=== PATIENT | female | born 1985 | race Caucasian/White ===

== ENCOUNTER 2018-02-15 19:58 | Emergency (ER) | payer OTHER, SELFPAY ==
[2018-02-15 19:59] VITALS: BP 136/90; PULSE 87; RESP 18; TEMP 36.8; O2SAT 100; BMI 26.2
--- NOTE | 2018-02-15 20:19 | RAD_ITS ---
STUDY: X-RAY - RIGHT SHOULDER REASON FOR EXAM: Female, 32 years old. Fell from horse TECHNIQUE: 4 view(s) of the shoulder. COMPARISON: None. FINDINGS: Normal glenohumeral articulation. Increased AC separation with slight elevation of the distal clavicle. Acromioclavicular joint measures 6 to 7 mm. Normal acromion. Normal humeral head and visualized proximal humerus. The soft tissue structures are unremarkable. Normal visualized pulmonary apex. RAD/Shoulder min 2 Views IMPRESSION: AC separation/strain Electronically Signed: Jim Gonzalez MD at 21:08 EDT , Service support ,
--- NOTE | 2018-02-15 20:51 | ED.VISSUMM ---
- ER Visit Summary Date of Service: 02/15/18 Chief Complaint: Fall, shoulder injury History of Present Illness: The patient is a 32 F with recent diagnosis of fibromuscular dysplasia presents after mechanical fall. Patient was riding a horse. She fell from the horse. She did strike her right head but did not lose consciousness. She also struck her right shoulder. She has not had weakness, dizziness, headache, or vision change. She has had mostly just pain in the shoulder especially when she moves it. She did take ibuprofen at home with little relief. She denies any other injury. The patient recently had evaluation with CTA of her head and neck given this new diagnosis of fibromuscular dysplasia. She has had no change in balance. She has no trouble speaking or swallowing. Physical Examination: Vital signs reviewed General: Well-nourished, well-developed Head: Normocephalic, abrasion over right eye, ecchymosis of the right face, no tenderness to palpation Eyes: Pupils equal and reactive, extraocular muscles intact Neck, supple, no lymphadenopathy Heart: Regular rate and rhythm Respiratory: No distress, clear bilaterally Abdomen: Soft, nontender, nondistended, no peritoneal signs Back: Nontender Extremities: Decreased range of motion right shoulder secondary to pain, normal pulses, sensation preserved s Skin: Normal color no rash Neuro: Alert and oriented, no focal or lateralizing deficits Test Results: [] Emergency Department Course and Treatment: The patient had facial injury, but no evidence of step-off. There is no hemotympanum. She had no tenderness to palpation. I do not feel head CT was necessary. She has no evidence of dissection and has a normal neurologic examination. I did obtain plain films of the shoulder. She has an AC joint separation but no evidence of dislocation. Patient was given a short course of analgesics and a sling. She will be given outpatient orthopedic follow-up. She will be discharged home. Treatment Plan: [] Disposition: Discharge Impression: 1. Fall 2. Facial injury 3. Right AC joint separation This note was generated with [employer] dictation software. It may contain incorrect words, spelling, and punctuation that were not noted in review of the chart prior to signing ED Disposition - Plan for ED Patient: Disposition: Home or Assisted Living Chief Complaint: Fall Instructions: ED Sprain AC Joint Prescriptions: Hydrocodone Bitart/Apap 5-325 [[place] 5MG-325MG] 1 tab PO Q4H PRN PRN 2 Days #10 tab PRN Reason: Pain Referrals: Stanley Panchal DO [STAFF PHYSICIAN] -
[2018-02-15] MEDS: HYDROcodone Bitartrate/Apap 5/325 Tablet PO (21:19)
[2018-02-15 21:24] VITALS: BP 132/74; PULSE 83; RESP 17; O2SAT 99
== END 2018-02-15 21:25 | disposition home or self-care (01) ==
PROVIDERS: Emergency Provider Emergency Medicine; Family Provider Student in an Organized Health Care Education/Training Program; PCP Student in an Organized Health Care Education/Training Program
DX: S43.101A Unspecified dislocation of right acromioclavicular joint, initial encounter (principal); S00.211A Abrasion of right eyelid and periocular area, initial encounter; S00.83XA Contusion of other part of head, initial encounter; S06.0X0A Concussion without loss of consciousness, initial encounter; R40.2410 Glasgow coma scale score 13-15, unspecified time; V80.010A Animal-rider injured by fall from or being thrown from horse in noncollision accident, initial encounter; Y93.52 Activity, horseback riding; Y92.9 Unspecified place or not applicable; Z79.899 Other long term (current) drug therapy
CPT/HCPCS: 73030; 99283

== ENCOUNTER 2018-03-25 14:13 | Day surgery (SDC) | payer OTHER, SELFPAY ==
[2018-03-25 14:35] LABS: Internal QC Validated? YES +Cl - CLEAR BKGD
[2018-03-25 14:36] VITALS: BP 132/77; PULSE 90; RESP 16; TEMP 36.8; O2SAT 100; BMI 26.5
[2018-03-25 14:36] LABS: Pregnancy, Urine Negative Negative
[2018-03-25] MEDS: Acetaminophen 500 MG Tablet 1000 MG PO (14:47)
[2018-03-25] MEDS: Gabapentin 600 MG Tablet PO (14:47)
[2018-03-25] MEDS: Ondansetron 8 MG Tablet 16 MG PO (14:47)
[2018-03-25] MEDS: Celecoxib 200 MG Capsule PO (14:48)
[2018-03-25 15:03] LABS: Thyroid Stim Hormone (TSH) 0.35 uIU/mL (0.358-3.74)
--- NOTE | 2018-03-25 15:45 | FALS_PTH ---
PATIENT: ADALBERTO ALMEIDA LOC: [facility] [place] U#:[id number] AGE/SX: 32/F ROOM: RE03/25/[address]: Dr. Rafaela Koch MD : [id number] BED: DIS: 03/25/2018 SPEC #: [id number] RECD: 03/26/18 08:39 STATUS: KAY NAHEED #: [id number] DANNA: 03/25/18 15:[address]: Rafaela Koch DEPT: SURGICAL PATHOLOGY RECD BY: Live Walters ENTERED: 03/26/18 09:10 SP TYPE: FALL TUBES OTHR DR: Dr. Hermilo Lauren, Tissues: A - Fallopian tube B - Endometrium, NOS Procedures: Surgery Specimen Level II Surgery Specimen Level IV HEADER OPERATION: Hysteroscopy, dilation and curettage PRE-OP DIAGNOSIS: Abnormal uterine bleeding, endometrial polyp TISSUE SUBMITTED: A ? Bilateral fallopian tubes, B ? Endometrial curettings MICROSCOPIC DIAGNOSIS A. Right and left fallopian tubes, bilateral salpingectomies: Two complete cross-sections of fallopian tubes with no pathologic change. B. Endometrium, curettings: Polypoid fragments of weakly proliferative endometrium with stromal hyperplasia suggestive of exogenous hormonal defect. Rare fragments of endocervix with mild chronic inflammation. AM:kerrie 03/29/18 COMMENT Case has been reviewed in consultation with Dr. Baumann who concurs with the above diagnosis. IDC:[email or web address] MICROSCOPIC DESCRIPTION Slides are reviewed. GROSS DESCRIPTION A - Received is one container labeled with the patient's name and designated bilateral fallopian tubes. The specimen consists of bilateral fallopian tubes including fimbrial ends. The fallopian tubes are not identified as right or left and measures 6.5 cm in length and 0.5 cm in diameter and 6 cm in length and 0.5 cm in diameter. Sections reveal unremarkable cut surfaces. Plow And Boring Machine Tender sections are submitted in two cassettes with each cassette containing one fallopian tube. B - Received in fixative is one container labeled with the patient's name and designated endometrial curettings. The specimen consists of multiple fragments of hemorrhagic soft tissue that in aggregate measure 3 x 2.5 x 0.3 cm. The specimen is totally submitted in one cassette. / KEVIN:kerrie 03/26/18 TC:5 CPT: 52627, 24464 x2
--- NOTE | 2018-03-25 16:03 | PCM.DC.TUB ---
Discharge Diet: No Restrictions - Increase fluid intake for the next 48 hours. Discharge Activity: Return to Normal Activity, May Drive - when you are no longer taking pain/narcotic meds., May Shower, May Take a Tub Bath - in 7 days Additional Activity Instructions:: Ambulate often the next week after surgery. Nothing in the vagina for 5 days. Call your doctor if your incision/area has: Continuous Slow Oozing, Sudden Increased Bleeding, Increased Pain/ Swelling, Increased Redness, Foul Smelling Discharge Call your doctor if you observe: Fever of 101 or Higher Cleanse incision/area with: Soap & Water, - - Your incisions have skin glue. It can get wet. Please leave the skin glue on for 10-14 days or until it falls off on its own Allergies/Adverse Reactions: Allergies No Known Allergies Allergy (Verified 03/18/18 14:53) Medications to take at Discharge Etonogestrel/Ethinyl Estradiol [Nuvaring Vaginal Ring] 1 ea VAGINAL QMONTH 06/24/17 Levothyroxine [Synthroid] 88 mcg PO DAILY 06/24/17 Atenolol [Tenormin (beta Nati)] 25 mg PO DAILY 02/15/18 Bupropion HCl [Wellbutrin Xl] 150 mg PO DAILY 02/15/18 Eszopiclone [Lunesta] 3 mg PO PRN PRN 02/15/18 Fluoxetine HCl [Prozac] 40 mg PO BID 02/15/18 Hydrochlorothiazide [Hctz] 25 mg PO DAILY 02/15/18 Parafon Forte 500 mg PO DAILY 02/15/18 Aspirin [Aspirin, Baby] 81 mg PO DAILY@0800 03/18/18 Magnesium Oxide [Magnesium] 400 mg PO DAILY 03/18/18 Riboflavin [Vitamin B2] 400 mg PO DAILY 03/18/18 Primary Care Physician: Hermilo Lauren DO [Primary Care Provider] - Please Follow Up With: Rafaela Koch MD - [phone] When: 2-4 weeks or as needed
--- NOTE | 2018-03-25 16:05 | PCM.OPRPT ---
Report of Operation Date of Procedure: 03/25/18 Pre-Operative Diagnosis: Abnormal uterine bleeding, thickened endometrium, sterilization request Post-Operative Diagnosis: Same Surgery/Procedure Performed:: Hysteroscopy dilation and curettage with laparoscopic bilateral salpingectomy Description of Surgical Findings:: Normal-appearing cervix, and vagina. Endometrium with very small possible polyp appearing area on the right lateral sidewall in the mid cavity. Otherwise no intrauterine pathology noted. Normal-appearing uterus tubes and ovaries bilaterally. Some erythematous and clear lesions in the anterior cul-de-sac with consistent with peritoneal endometriosis creel clerk: Dariel Mendenhall Type of Anesthesia:: General Anesthesiologist: Lc Neves Special Medications: none Specimen's removed: endometrial curettings and bilateral tubes Drains: none Estimated Blood Loss (mL): 20 Fluids Replaced: 1000cc Description of Procedure: The patient was taken to the operating room where she was prepped and draped in the dorsolithotomy position. A weighted speculum was placed in the vagina and the anterior lip of the cervix was grasped with a tenaculum. The Netta uterine manipulator was placed and the remainder of the instruments were removed from the vagina. Attention was turned to the abdomen. All port sites were infiltrated with 0.5% Marcaine before skin incisions were made. A 5 mm intraumbilical incision was made. The anterior abdominal wall was tented up with 2 towel clamps while a 5 mm blade less trocar and sleeve were directly inserted. Intraperitoneal placement was confirmed with the laparoscope. The pneumoperitoneum was created and the underlying abdominal contents were intact. The patient was placed in Trendelenburg. Left lower quadrant and 5 cm above the symphysis pubis 5mm ports were placed under direct visualization lateral to the inferior epigastric vessels. The bowel was swept away and the above findings were noted. The LigaSure device was used to clamp seal and transect the antimesenteric portions of the right tube to the cornual insertion of the uterus. The tube was amputated from the uterus and the pedicles were all confirmed to be hemostatic. The same procedure was performed on the contralateral side. The specimens were brought out through a 5 mm port. The pedicles were again examined and found to be hemostatic. The lateral ports were removed under direct visualization and no active bleeding was noted. The pneumoperitoneum was released. The skin incisions were closed with Monocryl suture in a subcuticular fashion and skin glue by the TELEMARKETING REPRESENTATIVE. The patient was taken to the OR where she was prepped and draped in dorsal lithotomy position. The weighted speculum was placed in the vagina and the anterior lip of the cervix was grasped with a single-tooth tenaculum. A paracervical block was administered with 1% lidocaine with 1-100,000 epinephrine solution. The cervix was dilated serially with Hegar dilators. The 5mm hysteroscope was placed into the uterine cavity and the above findings were noted. Bilateral tubal ostia were identified. The hysteroscope was removed. A gentle sharp curettage was done of the uterine cavity. After the dilation and curettage the hysteroscope was replaced and the small polypoid appearing lesion on the right uterine wall had been removed. The instruments were removed from the vagina. The specimen was handed off and sent to pathology. All sponge and needle counts were correct. Vaginal sweep was performed by me. Hysteroscopic ins: 500cc normal saline Hysteroscopic outs:350cc Findings: Endometrial cavity: Normal shaped endometrial cavity. Both tubal ostia were identified. No fibroids or definitive polyps. There is a small raised area on the right lateral uterine wall in the midportion of the cavity that might of been a small polyp versus atrium that had been roughed up during dilation and scope insertion Cervix: normal Vagina: normal The procedure was performed by me with assistance other than as dictated above. All sponge and needle counts were correct and the patient was taken to the recovery room in stable condition. Grafts/Implants Used: none - Complications none - Admit VTE Documentation VTE Present on Admission: No VTE Mechan Device Prophylaxis: SCD's VTE Pharm Prophylaxis ordered?: No Reason prophylaxis not ordered:: Procedure Not Indicated
[2018-03-25 16:09] VITALS: BP 132/77; BP 144/87; PULSE 99; RESP 18; TEMP 36.8; O2SAT 100
[2018-03-25 16:15] VITALS: BP 120/69; BP 132/77; PULSE 95; RESP 18; O2SAT 100
[2018-03-25 16:30] VITALS: BP 131/79; BP 132/77; PULSE 86; RESP 18; O2SAT 100
[2018-03-25 16:40] VITALS: BP 132/77; BP 144/89; PULSE 93; RESP 18; TEMP 37.2; O2SAT 100
[2018-03-25 17:03] VITALS: BP 132/77
== END 2018-03-25 17:06 | disposition home or self-care (01) ==
LOC: SDC 14:15 → AC 14:16
PROVIDERS: Family Provider Student in an Organized Health Care Education/Training Program; PCP Student in an Organized Health Care Education/Training Program; Visit Provider Obstetrics & Gynecology
PROC: 0UDB8ZZ Extraction of Endometrium, Via Natural or Artificial Opening Endoscopic (ICD-10-PCS; CPT 58558; principal; 2018-03-25 15:30)
PROC: (CPT 58558; 2018-03-25 15:30)
DX: N71.1 Chronic inflammatory disease of uterus (principal); N93.9 Abnormal uterine and vaginal bleeding, unspecified; Z30.2 Encounter for sterilization; F41.9 Anxiety disorder, unspecified; J45.909 Unspecified asthma, uncomplicated; F32.9 Major depressive disorder, single episode, unspecified; I10 Essential (primary) hypertension; E06.9 Thyroiditis, unspecified; Z79.82 Long term (current) use of aspirin; Z79.51 Long term (current) use of inhaled steroids; Z79.899 Other long term (current) drug therapy
CPT/HCPCS: 58558; 58661; 81025; 84443; 88302; 88305; J7120; J0330; J2405

== ENCOUNTER 2018-04-06 13:39 | Emergency (ER) | payer OTHER, SELFPAY ==
[2018-04-06 13:40] VITALS: BP 138/90; PULSE 81; RESP 16; TEMP 36.4; O2SAT 100; BMI 26.5
--- NOTE | 2018-04-06 14:09 | RAD_ITS ---
STUDY: X-RAY - LEFT FOOT CLINICAL: Female, 32 years old. Pain and swelling following injury. TECHNIQUE: 3 view(s) of the foot. COMPARISON: None. FINDINGS: Normal talus, calcaneus, and tarsal bones. Normal visualized subtalar, talonavicular, calcaneocuboid, tarsal and tarsometatarsal articulations. Normal metatarsi. Normal metatarsophalangeal joint of the great toe. Normal tibial and fibular sesamoid bones. Normal interphalangeal joint of the great toe. Normal phalanges of the great toe. Normal second through fifth metatarsophalangeal joints. Normal interphalangeal joints and phalanges of the lesser toes. The soft tissue structures are unremarkable. RAD/Foot min 3 Views IMPRESSION: Normal x-ray examination of the foot. Electronically Signed: Greg Mathis MD at 14:39 EDT Tel [phone], Service support ,
--- NOTE | 2018-04-06 14:12 | RAD_ITS ---
STUDY: X-RAY - LEFT ANKLE REASON FOR EXAM: Female, 32 years old. Pain and swelling following injury. TECHNIQUE: 3 view(s) of the ankle. COMPARISON: None. FINDINGS: Normal visualized distal tibia and fibula. Normal medial and lateral malleoli. Normal tibiotalar articulation and ankle mortise. Normal visualized talus and calcaneus. The visualized subtalar, talonavicular, calcaneocuboid and tarsal articulations are normal. Soft tissue swelling overlying the proximal lateral foot. RAD/Ankle min 3 Views IMPRESSION: Soft tissue swelling. Electronically Signed: Greg Mathis MD at 14:40 EDT Tel [phone], Service support ,
--- NOTE | 2018-04-06 15:11 | ED.DCSUM_ITS ---
- ER Visit Summary Date of Service: 04/06/18 Chief Complaint: Left ankle injury History of Present Illness: The patient is a 32 F presenting for evaluation secondary to left ankle injury. Patient reports that she fell off of a 3 foot ladder and suffered a plantar inversion injury of her left foot and ankle. Patient reports that she has pain and swelling in that area and some difficulty with ambulation. She denies any injuries other than that. Physical Examination: Physical exam unremarkable except for examination of the left lower extremity. There is no evidence of proximal fibular head tenderness , there is swelling and tenderness over the lateral malleolus and the lateral part of the foot. Normal sensation over all dermatomes, normal capillary refill , normal pulses. No evidence of laxity with drawer test. Test Results: Foot and ankle x-rays found to be negative Emergency Department Course and Treatment: Patient presented for evaluation secondary to an ankle injury. X-rays are negative. Patient was recommended on conservative management of her ankle sprain Disposition: Discharge Impression: 1. Left ankle sprain This note was generated with [employer] dictation software. It may contain incorrect words, spelling, and punctuation that were not noted in review of the chart prior to signing ED Disposition - Plan for ED Patient: Disposition: Home or Assisted Living Chief Complaint: Lower Extremity Injury Diagnosis: Ankle sprain Instructions: ED Sprain Ankle No X Ray Ch Referrals: Hermilo Lauren DO [Primary Care Provider] - As Needed
[2018-04-06 15:13] VITALS: BP 108/77; PULSE 59; RESP 16; O2SAT 98
== END 2018-04-06 15:14 | disposition home or self-care (01) ==
PROVIDERS: Emergency Provider Emergency Medicine; Family Provider Student in an Organized Health Care Education/Training Program; PCP Student in an Organized Health Care Education/Training Program
DX: S93.402A Sprain of unspecified ligament of left ankle, initial encounter (principal); W11.XXXA Fall on and from ladder, initial encounter; Y93.9 Activity, unspecified; Y92.9 Unspecified place or not applicable
CPT/HCPCS: 73610; 73630; 99282

== ENCOUNTER 2021-04-20 14:59 | Emergency (ER) | payer OTHER, SELFPAY ==
[2021-04-20 15:01] VITALS: BP 144/91; PULSE 78; RESP 16; TEMP 36.5; O2SAT 97; BMI 23.9
--- NOTE | 2021-04-20 15:17 | CT_ITS ---
STUDY: CT BRAIN WITHOUT CONTRAST REASON FOR EXAM: Female, 35 years old. PAIN LEFT SIDE OF NECK/PRESSURE LEFT EAR PT STATES KNOWN DISSECTION RIGHT CAROTID ARTERY RADIATION DOSAGE (If Supplied By Facility): CTDIvol = ( 26.85 ) mGy, DLP = ( 1484.33 ) mGycm TECHNIQUE: Transaxial CT imaging of the brain was performed without administration of intravenous contrast material. Individualized dose optimization techniques were used for this CT. COMPARISON: Head CT dated June 07, 2012 FINDINGS: Normal soft tissue structures. Normal calvarium. Normal size ventricles and extra-axial spaces for the patient''s age. Normal white matter tracts of the cerebral hemispheres. Normal basal ganglia and thalami. Normal brainstem. Normal cerebellum. There is no intracranial hemorrhage. There are no findings of an acute ischemic infarction. Normal visualized paranasal sinuses. IMPRESSION: Normal unenhanced CT scan of the brain. STUDY: CTA HEAD AND NECK WITH CONTRAST REASON FOR EXAM: Female, 35 years old. neck pain -- hx Fibromuscular dysplasia , r/o dissection RADIATION DOSAGE (If Supplied By Facility): CTDIvol = ( 26.85 ) mGy, DLP = ( 1484.33 ) mGycm TECHNIQUE: CT angiography was performed with a multi-detector CT scanner. Data acquisition was obtained from the skull base through the vertex following intravenous administration of IV 100mL [id number]-[id number]. MIP images were reconstructed from the axial data set. Post-processing of the angiographic images was performed, with multiplanar reformation and 3D reconstruction. Individualized dose optimization techniques were used for this CT. COMPARISON: No relevant priors. FINDINGS: Normal bilateral petrous carotid arteries. Normal right cavernous carotid artery with a normal supraclinoid bifurcation. Normal left cavernous carotid artery with a normal supraclinoid bifurcation. Normal right A1 segments of the anterior cerebral artery. Normal left A1 segments of the anterior cerebral artery. Normal intact anterior communicating artery (ACOM). Normal bilateral A2 segments of the anterior cerebral arteries. Normal right M1 and M2 segments of the middle cerebral arteries, with a normal M1 bifurcation. Normal left M1 and M2 segments of the middle cerebral arteries, with a normal M1 bifurcation. Normal right posterior communicating artery (PCOM). Normal left posterior communicating artery (PCOM). Normal bilateral vertebral arteries. Normal basilar artery with a normal basilar bifurcation. The visualized bilateral superior cerebellar (SCA) arteries are normal. Normal bilateral P1, P2 and visualized P3 segments of the posterior cerebral arteries. There is no demonstrated aneurysm of the [place]. There is no demonstrated abnormality of the visualized brain. AORTIC ARCH: Normal visualized aortic arch. Normal origins of the brachiocephalic, left common carotid, and left subclavian arteries. RIGHT CAROTID ARTERIES: Normal right common carotid artery (CCA). Normal right common carotid bulb. Moderate diffuse narrowing of the right internal carotid (ICA) artery. No visualized intraluminal thrombus no visualized dissection flap on this study. Normal visualized cervical portion of the right internal carotid artery. Normal origin of the right external carotid artery (ECA). LEFT CAROTID ARTERIES: Normal left common carotid artery (CCA). Normal left common carotid bulb. Moderate diffuse narrowing of the left internal carotid (ICA) artery. No visualized intraluminal thrombus no visualized dissection flap on this study. Normal visualized cervical portion of the left internal carotid artery. Normal origin of the left external carotid artery (ECA). VERTEBRAL ARTERIES: Normal bilateral vertebral arteries. CT/CTA Head AND Neck W/ Contrast IMPRESSION: 1. Moderate diffuse narrowing of the extracranial aspect of the bilateral internal carotid arteries. No dissection flap or intraluminal thrombus is seen in either artery on the current study. 2. No demonstrated hemodynamically significant stenosis or occlusion of the intracranial arteries. Electronically Signed: Ricardo Azar MD at 16:25 EDT , Service support ,
--- NOTE | 2021-04-20 15:26 | EDS_ITS ---
HPI History of Present Illness Chief Complaint: Other, Pain/Inj Informant: patient Narrative Narrative: Nontraumatic left-sided neck pain at the base of the skull. Denies pain or paresthesias down the arms. Patient reports history of fibromuscular dysplasia therefore has been told she is at risk for dissections. She has had CT angiograms in the past. She denies dizziness or visual symptoms. Denies any specific headaches. Denies trauma or any acceleration deceleration movements. No other complaints. Prior similar symptoms: Yes PFSH PFSH Medical History Anxiety Depressed Fibromuscular dysplasia HTN (hypertension) Migraine Home Medications etonogestrel-ethinyl estradiol [Nuvaring Vaginal Ring] 1 ea VAGINAL QMONTH 06/24/17 [History Last Taken Unknown] levothyroxine 88 mcg PO DAILY 06/24/17 [History Last Taken Unknown] Parafon Forte 500 mg PO DAILY 02/15/18 [History Last Taken Unknown] atenolol 25 mg PO DAILY 02/15/18 [History Last Taken 03/25/18 05:00] bupropion HCl [Wellbutrin Xl] 150 mg PO DAILY 02/15/18 [History Last Taken Unknown] eszopiclone [Lunesta] 3 mg PO PRN PRN 02/15/18 [History Last Taken Unknown] fluoxetine [Prozac] 40 mg PO BID 02/15/18 [History Last Taken Unknown] hydrochlorothiazide 25 mg PO DAILY 02/15/18 [History Last Taken Unknown] aspirin 81 mg PO DAILY@0800 03/18/18 [History Last Taken Unknown] magnesium oxide 400 mg PO DAILY 03/18/18 [History Last Taken Unknown] riboflavin (vitamin B2) [Vitamin B2] 400 mg PO DAILY 03/18/18 [History Last Taken Unknown] Allergy/AdvReac Type Severity Reaction Status Date / Time No Known Allergies Allergy Verified 04/20/21 15:09 Surgical History H/O arthroscopy of right knee H/O tubal ligation S/P tonsillectomy Social History Smoking Status: Never smoker ROS ROS ED Constitutional Constitutional ED: Denies chills, fever(s) or sweats Eyes Eyes: Denies change in vision ENT ENT ED: Denies dysphagia or sore throat Cardiovascular Cardiovascular: Denies chest pain, leg edema, palpitations or racing heartbeat Respiratory/Chest Respiratory/Chest: Denies cough, dyspnea or dyspnea on exertion Gastrointestinal Gastrointestinal: Denies abdominal pain, diarrhea, nausea or vomiting Genitourinary Genitourinary ED: Denies dysuria, hematuria or urinary frequency Musculoskeletal Musculoskeletal: Reports neck pain; Denies back pain or extremity pain Integumentary Denies rash or wounds Neurologic Neurologic: Denies headache(s), paresthesias or weakness EXAM Physical Exam Const Vital Signs: 04/20/21 15:01 04/20/21 15:06 Temperature 97.7 F L Temperature Source Temporal Pulse Rate 78 Respiratory Rate 16 Respiratory Effort Normal Non-Labored Respiratory Pattern Normal Blood Pressure 144/91 H Blood Pressure Mean 108 Pulse Ox 97 Oxygen Delivery Method Room Air Positive well nourished and well developed General Appearance ED: well developed and NAD HEENT Reports moist mucous membranes normocephalic and atraumatic Eyes PERRL, EOMs intact bilaterally and conjunctivae normal General Eye ED: Yes normal appearance of both eyes Neck no lymphadenopathy and supple Neck Narrative: No midline tenderness, patient with good full rotation of the neck. General: tenderness Chest Wall Chest: Negative for tenderness Resp normal respiratory effort and normal air movement Effort and Inspection: symmetric chest movement; Negative for respiratory distress Cardio regular rate, regular rhythm and no murmurs Peripheral Pulses: pulses 2+ throughout GI normal to inspection, nondistended, normoactive bowel sounds and non-tender Palpation: Negative for guarding or rebound tenderness present Back/Spine no CVA tenderness and no thoracic nor lumbar tenderness Extremity normal to inspection General Extremety ED: Negative for edema or tenderness General Extremity: Negative for edema Neuro oriented x3 and no sensory deficits noted Sensorium / Orientation: awake and alert Skin no rashes or lesions noted and no wounds MDM MDM MDM Narrative Medical decision making narrative: Patient with no focal neurological deficits. Nontraumatic neck pain history of fibromuscular dysplasia, she is concerned for vertebral dissection. Work-up initiated with angiogram of the head and neck shows no signs of dissection. There was noted diffuse narrowing of the external bilateral internal carotids. Vertebral arteries were normal. Patient reassured. She will use Tylenol as needed. Follow-up as an outpatient. Lab Data Attestation: I reviewed the patient's lab results. Labs: Laboratory Results - last 24 hr 04/20/21 04/20/21 15:30 15:30 WBC 9.5 RBC 4.22 Hgb 12.7 Hct 38.3 MCV 90.8 MCH 30.1 MCHC 33.2 RDW Std Deviation 42.1 RDW Coeff of Solomon 12.7 Plt Count 352 MPV 10.2 Immature Gran % (Auto) 0.500 Neut % (Auto) 57.7 Lymph % (Auto) 30.2 [place] % (Auto) 7.0 Eos % (Auto) 3.9 Baso % (Auto) 0.7 Absolute Neuts (auto) 5.5 Absolute Lymphs (auto) 2.87 Nucleated RBC % 0 Sodium 141 Potassium 4.1 Chloride 105 Carbon Dioxide 29.0 Anion Gap 7 BUN 25 H Creatinine 0.94 Estim Creat Clear Calc 67.78 Est GFR (MDRD) Af Amer 86 Est GFR (MDRD) Non-Af 71 BUN/Creatinine Ratio 26.7 H Glucose 90 Calcium 9.5 Radiography Diagnostic Testing: Radiology Impression Head/Neck CTA 04/20/21 15:17 IMPRESSION: 1. Moderate diffuse narrowing of the extracranial aspect of the bilateral internal carotid arteries. No dissection flap or intraluminal thrombus is seen in either artery on the current study. 2. No demonstrated hemodynamically significant stenosis or occlusion of the intracranial arteries. Electronically Signed: Ricardo Azar MD at 16:25 EDT , Service support , Discharge Plan Triage Chief Complaint: Other, Pain/Inj ED Provider: Phong Aguilera Dx/Rx/DC Orders Clinical Impression: Cervical muscle strain Instructions: ED Neck Sprain or Strain Prescriptions: No Action levothyroxine 75 MCG tablet 88 mcg PO DAILY RF: 0 etonogestrel-ethinyl estradiol [NuvaRing] 1 EACH Vag.Ring 1 ea vaginal QMONTH RF: 0 atenolol 25 MG tablet 25 mg PO DAILY RF: 0 hydrochlorothiazide 25 MG tablet 25 mg PO DAILY RF: 0 fluoxetine [Prozac] 20 MG capsule 40 mg PO BID RF: 0 bupropion HCl [Wellbutrin XL] 150 MG Tab.Er.24h 150 mg PO DAILY RF: 0 Parafon Forte 500 mg PO DAILY RF: 0 eszopiclone [Lunesta] 3 MG tablet 3 mg PO PRN PRN (Reason: Insomnia) RF: 0 riboflavin (vitamin B2) [Vitamin B-2] 100 MG tablet 400 mg PO DAILY RF: 0 aspirin 81 MG Tab.Chew 81 mg PO DAILY@0800 RF: 0 magnesium oxide 400 MG tablet 400 mg PO DAILY RF: 0 Primary Care Provider: Hermilo Lauren Referrals: Hermilo Lauren DO [Primary Care Provider] - 3-5 Days if not improving Activity Restrictions/Additional Instructions: CT angiogram head and neck negative for any vertebral or artery dissection. Use Tylenol as needed. Follow-up with your doctor. Disposition Disposition: Home, Self Care
[2021-04-20 15:42] LABS: Absolute Lymphocyte Count 2.87 X10^3/uL (0.83-4.51); Absolute Neutrophil Count 5.5 X10^3/uL (2.0-7.7); Basophil# 0.07 X10^3/uL; Basophil% 0.7 % (0-1); Eosinophil# 0.37 X10^3/uL; Eosinophils% 3.9 % (0-5); Hematocrit 38.3 % (37-47); Hemoglobin 12.7 g/dL (12.0-15.0); Lymphocyte # 2.87 X10^3/ul (0.83-4.51); Lymphocyte % 30.2 % (19-41); Mean Corp Hgb Conc 33.2 g/dL (32-36); Mean Corpuscular Hgb 30.1 pg (27.0-32.0); Mean Corpuscular Volume 90.8 fL (81-99); Mean Platelet Vol. 10.2 fl (6.2-12.0); Monocyte# 0.67 X10^3/uL; NRBC Flagged by Analyzer 0 % (0-5); Neutrophil # 5.48 X10^3/uL (2.7-7.7); Neutrophil % 57.7 % (47-70); Platelet Count 352 K/mm3 (150-450); RBC Distribution Width CV 12.7 % (11.6-14.6); RBC Distribution Width SD 42.1 fl (35.1-43.9); Red Blood Count 4.22 M/mm3 (4.2-5.4); White Blood Count 9.5 K/mm3 (4.4-11.0)
[2021-04-20 16:00] LABS: Anion Gap 7 (5-15); BUN 25 mg/dL (7-18); BUN/Creat Ratio 26.7 RATIO (10-20); Calcium,Total 9.5 mg/dL (8.5-10.1); Chloride 105 mmol/L (98-107); Creatinine, Serum 0.94 mg/dL (0.55-1.02); EST Glomerular Filtration Rate 71 mL/min (>60); Est Glom Filt Rate - Afr Amer 86 mL/min (>60); Estimated Creatinine Clearance 67.78 ml/min; Glucose 90 mg/dL (74-106); Potassium 4.1 mmol/L (3.5-5.1); Sodium Level 141 mmol/L (136-145)
[2021-04-20 17:41] VITALS: BP 117/81; PULSE 73; RESP 17; O2SAT 99
== END 2021-04-20 17:42 | disposition home or self-care (01) ==
PROVIDERS: Emergency Provider Emergency Medicine; PCP Student in an Organized Health Care Education/Training Program
DX: S16.1XXA Strain of muscle, fascia and tendon at neck level, initial encounter (principal); F41.9 Anxiety disorder, unspecified; F32.9 Major depressive disorder, single episode, unspecified; I10 Essential (primary) hypertension; Z79.899 Other long term (current) drug therapy; X58.XXXA Exposure to other specified factors, initial encounter; Y93.89 Activity, other specified; Y92.89 Other specified places as the place of occurrence of the external cause; Y99.8 Other external cause status
CPT/HCPCS: 70496; 70498; 80048; 85025; 99283; Q9967; A4216

== ENCOUNTER 2021-07-18 21:23 | Emergency (ER) | payer OTHER, SELFPAY ==
[2021-07-18 21:24] VITALS: BP 161/105; PULSE 114; RESP 18; TEMP 35.8; O2SAT 94; BMI 26.6
--- NOTE | 2021-07-18 21:57 | EKG12_ITS ---
Test Reason : Blood Pressure : / mmHG Vent. Rate : 097 BPM Atrial Rate : 097 BPM P-R Int : 146 ms QRS Dur : 100 ms QT Int : 366 ms P-R-T Axes : 063 014 038 degrees QTc Int : 464 ms Normal sinus rhythm Normal ECG Confirmed by KALLIE MAHER, IMELDA ([id number]), senior editor PATRICK MCINTOSH ([id number]) on 07/23/2021 6:54:51 AM Referred By: STEPHENIE Confirmed By:IMELDA ARREGUIN MD
[2021-07-18 22:19] LABS: Absolute Lymphocyte Count 2.84 X10^3/uL (0.83-4.51); Absolute Neutrophil Count 11.8 X10^3/uL (2.0-7.7); Basophil# 0.09 X10^3/uL; Basophil% 0.6 % (0-1); Eosinophil# 0.37 X10^3/uL; Eosinophils% 2.3 % (0-5); Hematocrit 38.4 % (37-47); Lymphocyte # 2.84 X10^3/ul (0.83-4.51); Lymphocyte % 17.6 % (19-41); Mean Corp Hgb Conc 33.9 g/dL (32-36); Mean Corpuscular Hgb 30.7 pg (27.0-32.0); Mean Corpuscular Volume 90.6 fL (81-99); Mean Platelet Vol. 9.4 fl (6.2-12.0); Monocyte# 1.01 X10^3/uL; Monocyte% 6.2 % (0-10); NRBC Flagged by Analyzer 0 % (0-5); Neutrophil # 11.76 X10^3/uL (2.7-7.7); Neutrophil % 72.7 % (47-70); Platelet Count 326 K/mm3 (150-450); RBC Distribution Width SD 42.8 fl (35.1-43.9); Red Blood Count 4.24 M/mm3 (4.2-5.4); White Blood Count 16.2 K/mm3 (4.4-11.0)
[2021-07-18 22:37] LABS: AST(SGOT) 21 U/L (15-37); Alanine Aminotransfer ALT/SGPT 31 U/L (13-56); Albumin, Serum 4.2 g/dL (3.2-5.0); Alkaline Phosphatase 86 U/L (45-117); Anion Gap 5 (5-15); BUN 16 mg/dL (7-18); BUN/Creat Ratio 15.8 RATIO (10-20); Bilirubin, Direct 0.11 mg/dL (0.00-0.30); Chloride 105 mmol/L (98-107); Creatinine, Serum 1.01 mg/dL (0.55-1.02); EST Glomerular Filtration Rate 65 mL/min (>60); Est Glom Filt Rate - Afr Amer 79 mL/min (>60); Estimated Creatinine Clearance 65.86 ml/min; Globulin 3.8 g/dL (2.2-4.2); Glucose 97 mg/dL (74-106); Sodium Level 137 mmol/L (136-145)
[2021-07-18 22:38] LABS: Alcohol, Blood (Medical)-Serum < 3.0 mg/dL
[2021-07-18 22:38] LABS: Amphetamine Urine VISTA NEGATIVE (<1000 ng/mL); Barbiturate Urine VISTA NEGATIVE (< 200 ng/mL); Benzodiazepine Urine VISTA NEGATIVE (< 200 ng/mL); Cocaine Urine VISTA NEGATIVE (< 300 ng/mL); Ecstacy Urine VISTA POSITIVE (< 500 ng/mL); Methadone Urine VISTA NEGATIVE (< 300 ng/mL); PCP Urine VISTA NEGATIVE (< 25 ng/mL); THC Urine VISTA NEGATIVE (< 50 ng/mL); Vista UDS pH Range 7
[2021-07-18 22:53] LABS: Internal QC Validated? YES +Cl - CLEAR BKGD; Pregnancy, Serum, hCG Quali. NEGATIVE Negative
--- NOTE | 2021-07-18 23:30 | EDS_ITS ---
HPI History of Present Illness Chief Complaint: Alt LOC Informant: patient and parent Onset/Context/Timing Onset: Today Current Severity: Mild Maximum Severity: Moderate Narrative Narrative: Patient presents with her mother secondary to altered level of consciousness. Patient states that she is under a lot of stress recently. She is undergoing a divorce and her child got suspended from school. Tonight she was at the horse barn with her mom. Mom states she came out of the stall and found the patient standing in the aisle with a horse licked her face and just seems zoned out. She suddenly jumped back and turned stating do not hurt me. Mother states for about an hour and a half she was not herself. At this time she seems to be improving but not quite back to baseline. Patient denies any recent medication changes. No recent falls or head injuries. She denies fever or chills. No recent illness. [facility] Medical History Anxiety Depressed Fibromuscular dysplasia HLD (hyperlipidemia) HTN (hypertension) Migraine Home Medications levothyroxine 88 mcg PO DAILY 06/24/17 [History Last Taken Unknown] bupropion HCl [Wellbutrin Xl] 450 mg PO DAILY 02/15/18 [History Last Taken Unknown] aspirin 81 mg PO DAILY@0800 03/18/18 [History Last Taken Unknown] atorvastatin 10 mg PO DAILY 07/18/21 [History Last Taken Unknown] biotin 10,000 mcg PO DAILY 07/18/21 [History Last Taken Unknown] chlorzoxazone 500 mg PO TID 07/18/21 [History Last Taken Unknown] dextroamphetamine-amphetamine [Adderall XR] 25 mg PO DAILY 07/18/21 [History Last Taken Unknown] duloxetine 90 mg PO DAILY 07/18/21 [History Last Taken Unknown] glycopyrrolate 2 mg PO BID 07/18/21 [History Last Taken Unknown] metoprolol succinate 100 mg PO DAILY 07/18/21 [History Last Taken Unknown] tizanidine 2 - 8 mg PO QHS PRN 07/18/21 [History Last Taken Unknown] Allergy/AdvReac Type Severity Reaction Status Date / Time No Known Allergies Allergy Verified 07/18/21 21:31 Surgical History H/O arthroscopy of right knee H/O tubal ligation S/P tonsillectomy Social History Smoking Status: Never smoker ROS ROS ED Constitutional Constitutional ED: Denies chills or fever(s) Eyes Eyes: Denies change in vision ENT ENT ED: Denies sore throat Cardiovascular Cardiovascular: Denies chest pain Respiratory/Chest Respiratory/Chest: Denies cough or dyspnea Gastrointestinal Gastrointestinal: Denies abdominal pain, diarrhea, nausea or vomiting Genitourinary Genitourinary ED: Denies dysuria Musculoskeletal Musculoskeletal: Denies back pain Integumentary Denies rash Neurologic Neurologic: Denies headache(s) or weakness Psychiatric Psychiatric: Denies anxiety or depression Allergic/Immunologic Allergic/Immunologic ED: Denies urticaria EXAM Physical Exam Const Vital Signs: 07/18/21 21:24 Temperature 96.5 F L Temperature Source Temporal Pulse Rate 114 H Respiratory Rate 18 Blood Pressure 161/105 H Blood Pressure Mean 123 Pulse Ox 94 Oxygen Delivery Method Room Air Positive well nourished and well developed General Appearance ED: well developed HEENT Reports normocephalic and head/scalp atraumatic Eyes PERRL and EOMs intact bilaterally Neck supple Chest Wall inspection of chest normal and palpation of chest normal Resp normal respiratory effort and clear to auscultation bilaterally Cardio regular rate and regular rhythm GI normal to inspection, nondistended, normoactive bowel sounds Palpation: soft Back/Spine no CVA tenderness Extremity normal to inspection Neuro oriented x3 and no sensory deficits noted Sensorium / Orientation: alert Motor Exam: strength 5/5 throughout Psych mental status grossly normal Skin no rashes or lesions noted MDM MDM MDM Narrative Medical decision making narrative: Patient placed on technology development intern. EKG, lab work obtained. Lab Data Attestation: I reviewed the patient's lab results. Labs: Laboratory Results - last 24 hr 07/18/21 07/18/21 07/18/21 22:09 22:09 22:09 WBC 16.2 H RBC 4.24 Hgb 13.0 Hct 38.4 MCV 90.6 MCH 30.7 MCHC 33.9 RDW Std Deviation 42.8 RDW Coeff of Solomon 13.0 Plt Count 326 MPV 9.4 Immature Gran % (Auto) 0.600 Neut % (Auto) 72.7 H Lymph % (Auto) 17.6 L [place] % (Auto) 6.2 Eos % (Auto) 2.3 Baso % (Auto) 0.6 Absolute Neuts (auto) 11.8 H Absolute Lymphs (auto) 2.84 Nucleated RBC % 0 Sodium 137 Potassium 4.0 Chloride 105 Carbon Dioxide 27.0 Anion Gap 5 BUN 16 Creatinine 1.01 Estim Creat Clear Calc 65.86 Est GFR (MDRD) Af Amer 79 Est GFR (MDRD) Non-Af 65 BUN/Creatinine Ratio 15.8 Glucose 97 Calcium 9.0 Total Bilirubin 0.30 Direct Bilirubin 0.11 AST 21 ALT 31 Alkaline Phosphatase 86 Total Protein 8.0 Albumin 4.2 Globulin 3.8 Serum , Qual Urine Opiates Screen Urine Methadone Screen Ur Barbiturates Screen Ur Phencyclidine Scrn Ur Amphetamines Screen U Methamphetamin-MDMA U Benzodiazepines Scrn Urine Cocaine Screen U Cannabinoids Screen Ur Drug Screen Comment Ethyl Alcohol < 3.0 07/18/21 07/18/21 22:09 22:17 WBC RBC Hgb Hct MCV MCH MCHC RDW Std Deviation RDW Coeff of Solomon Plt Count MPV Immature Gran % (Auto) Neut % (Auto) Lymph % (Auto) [place] % (Auto) Eos % (Auto) Baso % (Auto) Absolute Neuts (auto) Absolute Lymphs (auto) Nucleated RBC % Sodium Potassium Chloride Carbon Dioxide Anion Gap BUN Creatinine Estim Creat Clear Calc Est GFR (MDRD) Af Amer Est GFR (MDRD) Non-Af BUN/Creatinine Ratio Glucose Calcium Total Bilirubin Direct Bilirubin AST ALT Alkaline Phosphatase Total Protein Albumin Globulin Serum , Qual NEGATIVE Urine Opiates Screen NEGATIVE Urine Methadone Screen NEGATIVE Ur Barbiturates Screen NEGATIVE Ur Phencyclidine Scrn NEGATIVE Ur Amphetamines Screen NEGATIVE U Methamphetamin-MDMA POSITIVE H U Benzodiazepines Scrn NEGATIVE Urine Cocaine Screen NEGATIVE U Cannabinoids Screen NEGATIVE Ur Drug Screen Comment Ethyl Alcohol EKG Initial EKG: Attestation: I personally reviewed and interpreted this EKG as follows: Interpretation: Sinus Rhythm (Sinus at 97 with no acute ischemia.) Treatment and Re-Evaluation Comments:: Vital signs stable throughout ED stay. On repeat evaluation patient states she feels much improved. Mother at bedside states she seems to be back to her baseline. Blood work is reviewed with her. White count is elevated at 16, however the patient has no obvious source of infection. She will continue to monitor her symptoms over the next several days to see if any infectious symptoms arise. Talk screen is positive for amphetamines but patient is on Adderall. At this time patient will be discharged home with family. She is given phone number for counseling center for follow-up as needed. Discharge Plan Triage Chief Complaint: Alt LOC ED Provider: Pam Holman Dx/Rx/DC Orders Clinical Impression: Confusion Instructions: ED ALOC, ED Confusion Prescriptions: No Action levothyroxine 75 MCG tablet 88 mcg PO DAILY RF: 0 bupropion HCl [Wellbutrin XL] 150 MG tablet extended release 24 hr 450 mg PO DAILY RF: 0 aspirin 81 MG tablet,chewable 81 mg PO DAILY@0800 RF: 0 glycopyrrolate 1 mg Tablet 2 mg PO BID RF: 0 atorvastatin 10 mg Tablet 10 mg PO DAILY RF: 0 chlorzoxazone 500 mg Tablet 500 mg PO TID RF: 0 metoprolol succinate 100 mg Tablet Extended Release 24 Hr 100 mg PO DAILY RF: 0 biotin 10,000 mcg Capsule 10,000 mcg PO DAILY RF: 0 dextroamphetamine-amphetamine [Adderall XR] 25 mg Capsule,Extended Release 24hr 25 mg PO DAILY RF: 0 duloxetine 60 mg Capsule,Delayed Release(Dr/Ec) 90 mg PO DAILY RF: 0 tizanidine 4 mg Capsule 2 - 8 mg PO QHS PRN (Reason: Spasms) RF: 0 Primary Care Provider: Hermilo Lauren Referrals: Counseling,Center [GROUP OF PHYSICIANS] - As Needed Hermilo Lauren DO [Primary Care Provider] - Disposition Disposition: Home, Self Care
[2021-07-18 23:52] VITALS: RESP 18
== END 2021-07-18 23:52 | disposition home or self-care (01) ==
PROVIDERS: Emergency Provider Emergency Medicine; PCP Student in an Organized Health Care Education/Training Program
DX: R41.0 Disorientation, unspecified (principal); F41.9 Anxiety disorder, unspecified; F32.A Depression, unspecified; E78.5 Hyperlipidemia, unspecified; I10 Essential (primary) hypertension; Z79.899 Other long term (current) drug therapy
CPT/HCPCS: 80048; 80076; 80307; 82077; 84703; 85025; 93005; 99284; A4216

== ENCOUNTER 2022-07-21 21:35 | Emergency (ER) | payer BC, OTHER, SELFPAY ==
[2022-07-21 21:36] VITALS: BP 169/103; PULSE 89; RESP 16; TEMP 36.2; O2SAT 97; BMI 30.2
--- NOTE | 2022-07-21 21:43 | RAD_ITS ---
STUDY: X-RAY - LEFT TIBIA AND FIBULA REASON FOR EXAM: Female, 36 years old. INJURY TECHNIQUE: AP and lateral view(s) of the tibia and fibula were obtained. COMPARISON: None. FINDINGS: No acute fracture or dislocation. No destructive bone changes. Joint spaces are well-maintained. Normal alignment. Soft tissues are unremarkable. No radiopaque foreign body or soft tissue gas. RAD/Tibia & Fibula 2 Views IMPRESSION: Normal x-ray examination of the tibia and fibula. Electronically Signed: Blanche Rivas MD at 22:55 EDT Reading Location ID and State: [id number] / Tel , Service support ,
--- NOTE | 2022-07-21 22:19 | ED.VIS.LOWEX ---
HPI History of Present Illness Chief Complaint: Lower Extremity Injury Informant: patient Narrative Narrative: Is been upPatient presents with left lower extremity pain. She was riding her horse. The horse tripped fell and then rolled on its left side. Her leg got stuck under it for a moment. Walking. She was elevating it today. She states it swelled a lot initially. After elevation the swelling is down but it is still hurting. She was just concerned. Her boyfriend told her that sometimes you can break bones and not hurt that badly. She was concerned about fractures as well as possible compartment syndrome. But she has no numbness tingling weakness or color change. The swelling has also decreased with elevation. She is not on any anticoagulation other than baby aspirin. [facility] Medical History Anxiety Depressed Fibromuscular dysplasia HLD (hyperlipidemia) HTN (hypertension) Migraine Home Medications levothyroxine 75 mcg tablet 88 mcg PO DAILY 06/24/17 [History Last Taken Unknown] bupropion HCl 150 mg 24 hr tablet, extended release (Wellbutrin XL) 450 mg PO DAILY 02/15/18 [History Last Taken Unknown] aspirin 81 mg chewable tablet 81 mg PO DAILY@0800 03/18/18 [History Last Taken Unknown] atorvastatin 10 mg tablet 10 mg PO DAILY 07/18/21 [History Last Taken Unknown] biotin 10,000 mcg capsule 10,000 mcg PO DAILY 07/18/21 [History Last Taken Unknown] chlorzoxazone 500 mg tablet 500 mg PO TID PRN Muscle Pain 07/18/21 [History Last Taken Unknown] dextroamphetamine-amphetamine ER 25 mg 24hr capsule,extend release (Adderall XR) 25 mg PO DAILY 07/18/21 [History Last Taken Unknown] duloxetine 60 mg capsule,delayed release 90 mg PO DAILY 07/18/21 [History Last Taken Unknown] glycopyrrolate 1 mg tablet 2 mg PO BID 07/18/21 [History Last Taken Unknown] metoprolol succinate 100 mg tablet,extended release 24 hr 100 mg PO DAILY 07/18/21 [History Last Taken Unknown] tizanidine 4 mg capsule 2 - 8 mg PO QHS PRN Spasms 07/18/21 [History Last Taken Unknown] lamotrigine 100 mg tablet 100 mg PO DAILY 07/21/22 [History Last Taken Unknown] Allergy/AdvReac Type Severity Reaction Status Date / Time No Known Allergies Allergy Verified 07/21/22 21:38 Surgical History H/O arthroscopy of right knee H/O tubal ligation S/P tonsillectomy Social History Smoking Status: Never smoker ROS ROS ED Constitutional Constitutional ED: Denies fever(s) Cardiovascular Cardiovascular: Denies chest pain Gastrointestinal Gastrointestinal: Denies nausea or vomiting Musculoskeletal Musculoskeletal: Reports other Details: See history of present illness. ; Denies back pain or neck pain Integumentary Reports other Details: She is developing some bruising but no abrasions or lacerations ; Denies Abrasions Neurologic Neurologic: Denies paresthesias or weakness Hematologic/Lymphatic Hematologic/Lymphatic: Denies easy bleeding or easy bruising Allergic/Immunologic Allergic/Immunologic ED: Denies urticaria EXAM Physical Exam Const Vital Signs: 07/21/22 21:36 Temperature 97.2 F L Temperature Source Temporal Pulse Rate 89 Respiratory Rate 16 Blood Pressure 169/103 H Blood Pressure Mean 125 Pulse Ox 97 Oxygen Delivery Method Room Air Positive well nourished and well developed General Appearance ED: well developed and NAD HEENT atraumatic Resp normal respiratory effort Extremity Extremity Narrative: There is a slight amount of contusion on the medial aspect of the campo at the junction of the middle and distal third. No significant swelling. There is some mild nonfocal tenderness. Compartments do not feel firm or hard. She has excellent distal pulses. I can plantar and dorsiflex her foot without significant pain. Sensation is intact distally including between great and second toe. Capillary refill is normal. Neuro moves all extremities and no sensory deficits noted Sensorium / Orientation: alert Psych mental status grossly normal Skin no wounds Skin Narrative: Some contusion developing but no laceration abrasions. MDM MDM MDM Narrative Medical decision making narrative: Patient has no finding that is consistent with compartment syndrome. I would not check pressures on her. Her x-rays show no fracture. Her swelling has gone down already. I think she can continue [id number] nonsteroidals ice. We did talk about making sure she elevates her leg as much as possible above the level of her heart for the next 3 days. If she develops worsening pain, swelling, tingling pain with foot motion she should return. Radiography Diagnostic Testin view x-ray of the left tib-fib read by me shows no sign of acute fracture or dislocation. Discharge Plan Triage Chief Complaint: Lower Extremity Injury ED Provider: Sotero Lomeli Dx/Rx/DC Orders Clinical Impression: Contusion of left leg, Fall from horse Instructions: ED Contusion, Lower Extremity Prescriptions: No Action levothyroxine 75 MCG tablet 88 mcg PO DAILY bupropion HCl [Wellbutrin XL] 150 MG tablet extended release 24 hr 450 mg PO DAILY aspirin 81 MG tablet,chewable 81 mg PO DAILY@0800 glycopyrrolate 1 mg Tablet 2 mg PO BID atorvastatin 10 mg Tablet 10 mg PO DAILY chlorzoxazone 500 mg Tablet 500 mg PO TID PRN (Reason: Muscle Pain) metoprolol succinate 100 mg Tablet Extended Release 24 Hr 100 mg PO DAILY biotin 10,000 mcg Capsule 10,000 mcg PO DAILY dextroamphetamine-amphetamine [Adderall XR] 25 mg Capsule,Extended Release 24hr 25 mg PO DAILY duloxetine 60 mg Capsule,Delayed Release(Dr/Ec) 90 mg PO DAILY tizanidine 4 mg Capsule 2 - 8 mg PO QHS PRN (Reason: Spasms) lamotrigine 100 mg Tablet 100 mg PO DAILY Primary Care Provider: Hermilo Lauren Referrals: Hermilo Lauren, [Primary Care Provider] - 3-5 Days if not improving Activity Restrictions/Additional Instructions: Ice, elevation above the heart, [id number] meds for pain. Disposition Disposition: Home, Self Care
== END 2022-07-21 23:00 | disposition home or self-care (01) ==
PROVIDERS: Emergency Provider Emergency Medicine; PCP Student in an Organized Health Care Education/Training Program; Visit Provider Emergency Medicine
DX: S80.12XA Contusion of left lower leg, initial encounter (principal); E78.5 Hyperlipidemia, unspecified; I10 Essential (primary) hypertension; V80.010A Animal-rider injured by fall from or being thrown from horse in noncollision accident, initial encounter; Y93.52 Activity, horseback riding
CPT/HCPCS: 73590; 99282